=== PATIENT | female | born 1995 | race Caucasian/White ===

== ENCOUNTER → 2016-06-14 | Outpatient (CLI) | payer BC, OTHER ==
--- NOTE | 2016-06-14 16:39 | DI ---
XR FOOT COMPLETE MIN 3VW,06/14/2016 1:57 PM: Clinical History: Left foot pain. Previous Exam: None at this facility. Findings: 3 views of the left foot are obtained, and demonstrate anatomic alignment without fractures. The surr ounding soft tissues are unremarkable. Impression: Normal left foot.
== END ==
LOC: MOB RAD 14:20
DX: M79.672 Pain in left foot (principal); W10.9XXA Fall (on) (from) unspecified stairs and steps, initial encounter
CPT/HCPCS: 73630

== ENCOUNTER 2019-01-01 00:55 | Inpatient (IN) ==
[2019-01-01] MEDS ORDERED: LIDOCAINE W/ SODIUM BICARB 0.5 ML SYR SUBD PRN (11:34)
[2019-01-01] MEDS ORDERED: CITRIC ACID/SODIUM CITRATE 30 ML CUP PO PRN (11:34)
[2019-01-01] MEDS ORDERED: Carboprost Inj 250 MCG/ML AMP IM PRN (11:34)
[2019-01-01] MEDS ORDERED: CALCIUM CARBONATE 500 MG (TUMS) CHEWABLE TABLET PO PRN (11:34)
[2019-01-01] MEDS ORDERED: Phenylephrine Inj 50 MCG in Sodium Chloride 0.9% vial 0.5 ML IVP PRN (11:34)
[2019-01-01] MEDS ORDERED: OXYTOCIN 10 UNIT/1 ML IM PRN (11:34)
[2019-01-01] MEDS ORDERED: MISOPROSTOL 200 MCG TABLET RECTAL PRN (11:34)
[2019-01-01] MEDS ORDERED: CefOXitin Inj 2 GM in Sodium Chloride 0.9% 100 ML IV PRN (11:34)
[2019-01-01] MEDS ORDERED: NALOXONE 0.4 MG/1 ML VIAL IVP PRN (11:34)
[2019-01-01] MEDS ORDERED: ONDANSETRON 4 MG/2 ML VIAL IVP PRN (11:34)
[2019-01-01] MEDS ORDERED: Naloxone Inj 0.01 MG in Sodium Chloride 0.9% vial 1 ML IVP PRN (11:34)
[2019-01-01] MEDS ORDERED: METHYLERGONOVINE MALEATE 0.2 MG/1 ML VIAL IM PRN (11:34)
[2019-01-01] MEDS ORDERED: LIDOCAINE HCL 2 % 10 ML JELLY URO-JECT TOPICAL PRN (11:34)
[2019-01-01] MEDS ORDERED: diphenhydrAMINE 50 MG/1 ML VIAL IVP PRN (11:34)
[2019-01-01] MEDS ORDERED: Metoclopramide Inj 10 MG/2 ML VIAL IV PRN (11:34)
[2019-01-01] MEDS ORDERED: TERBUTALINE SULFATE 1 MG/1 ML SDV SUBCUT PRN (11:34)
[2019-01-01] MEDS ORDERED: FAMOTIDINE 20 MG/2 ML VIAL IVP PRN ×2 (11:34)
[2019-01-01] MEDS ORDERED: BUTORPHANOL TARTRATE 2 MG/1 ML VIAL IVP PRN (11:34)
[2019-01-01] MEDS ORDERED: Nalbuphine Inj 20 MG/ML Ampule IVP PRN (11:34)
[2019-01-01] MEDS ORDERED: fentaNYL Inj 100 MCG/2 ML VIAL IV PRN (11:34)
[2019-01-01] MEDS ORDERED: Lidocaine 1% 10 MG/ML - 20 ML VIAL SUBCUT PRN (11:34)
[2019-01-01] MEDS ORDERED: Oxytocin 20 Units + LR 20 UNIT/1,000 ML BAG IV SCH (11:45)
[2019-01-01] MEDS ORDERED: PENICILLIN G POTASSIUM 5,000,000 UNIT SDV IV ONE (12:34)
[2019-01-01] MEDS ORDERED: Sodium Chloride 0.9% 50 ML ONE (12:34)
[2019-01-01] MEDS: Lactated Ringers-OB Dept 1,000 ML PRIMARY IV SCH (12:38)
[2019-01-01 12:39] LABS: Hematocrit [HCT] 37.6 % (37.0-47.0); Hemoglobin [HGB] 13.1 g/dL (12.0-16.0); MEAN CORPUSCULAR HGB CONC 34.8 g/dL (33-37); MEAN CORPUSCULAR VOLUME 87.2 FL (81-99); MEAN PLATELET VOLUME 9.5 FL (7.4-12.2); RED BLOOD COUNT 4.31 10^6/uL (4.20-5.40)
[2019-01-01] MEDS ORDERED: MORPHINE SULFATE 2 MG/1 ML IVP ONE (21:05)
[2019-01-01] MEDS ORDERED: diphenhydrAMINE 25 MG CAPSULE PO ONE (21:06)
[2019-01-02] MEDS: Lactated Ringers-OB Dept 1,000 ML PRIMARY IV SCH ×2 (01:16→07:16)
[2019-01-02 08:42] VITALS: BP 114/76; RESP 16; TEMP 97.7; O2SAT 96
== END 2019-01-02 11:15 | disposition home or self-care (01) | DRG 833 ==
LOC: OBOP 00:55 → OBIP 11:34
PROVIDERS: ADMIT Obstetrics & Gynecology; ATTEND Obstetrics & Gynecology

== ENCOUNTER 2019-01-03 18:31 | Inpatient (IN) ==
[2019-01-03] MEDS ORDERED: MORPHINE SULFATE 2 MG/1 ML IVP ONE (20:19)
[2019-01-03] MEDS ORDERED: Lidocaine 1% 10 MG/ML - 20 ML VIAL SUBCUT PRN (21:23)
[2019-01-03] MEDS ORDERED: Carboprost Inj 250 MCG/ML AMP IM PRN (21:23)
[2019-01-03] MEDS ORDERED: CefOXitin Inj 2 GM in Sodium Chloride 0.9% 100 ML IV PRN (21:23)
[2019-01-03] MEDS ORDERED: Metoclopramide Inj 10 MG/2 ML VIAL IV PRN (21:23)
[2019-01-03] MEDS ORDERED: LIDOCAINE HCL 2 % 10 ML JELLY URO-JECT TOPICAL PRN (21:23)
[2019-01-03] MEDS ORDERED: MISOPROSTOL 200 MCG TABLET RECTAL PRN (21:23)
[2019-01-03] MEDS ORDERED: LIDOCAINE W/ SODIUM BICARB 0.5 ML SYR SUBD PRN ×2 (21:23→21:36)
[2019-01-03] MEDS ORDERED: OXYTOCIN 10 UNIT/1 ML IM PRN (21:23)
[2019-01-03] MEDS ORDERED: NALOXONE 0.4 MG/1 ML VIAL IVP PRN (21:23)
[2019-01-03] MEDS ORDERED: BUTORPHANOL TARTRATE 2 MG/1 ML VIAL IVP PRN (21:23)
[2019-01-03] MEDS ORDERED: fentaNYL Inj 100 MCG/2 ML VIAL IVP PRN (21:23)
[2019-01-03] MEDS ORDERED: Naloxone Inj 0.01 MG in Sodium Chloride 0.9% vial 1 ML IVP PRN (21:23)
[2019-01-03] MEDS ORDERED: FAMOTIDINE 20 MG/2 ML VIAL IVP PRN ×2 (21:23)
[2019-01-03] MEDS ORDERED: Phenylephrine Inj 50 MCG in Sodium Chloride 0.9% vial 0.5 ML IVP PRN (21:23)
[2019-01-03] MEDS ORDERED: Nalbuphine Inj 20 MG/ML Ampule IVP PRN (21:23)
[2019-01-03] MEDS ORDERED: CALCIUM CARBONATE 500 MG (TUMS) CHEWABLE TABLET PO PRN ×2 (21:23→21:36)
[2019-01-03] MEDS ORDERED: METHYLERGONOVINE MALEATE 0.2 MG/1 ML VIAL IM PRN (21:23)
[2019-01-03] MEDS ORDERED: diphenhydrAMINE 50 MG/1 ML VIAL IVP PRN (21:23)
[2019-01-03] MEDS ORDERED: ONDANSETRON 4 MG/2 ML VIAL IVP PRN ×2 (21:23→21:36)
[2019-01-03] MEDS ORDERED: CITRIC ACID/SODIUM CITRATE 30 ML CUP PO PRN (21:23)
[2019-01-03] MEDS ORDERED: TERBUTALINE SULFATE 1 MG/1 ML SDV SUBCUT PRN (21:23)
[2019-01-03] MEDS ORDERED: Oxytocin 20 Units + LR 20 UNIT/1,000 ML BAG IV SCH (21:30)
[2019-01-03] MEDS ORDERED: Lactated Ringers-OB Dept 1,000 ML PRIMARY IV SCH (21:30)
[2019-01-03] MEDS ORDERED: Ondansetron ODT Tab 4 MG TAB PO PRN (21:36)
[2019-01-03] MEDS ORDERED: Zolpidem Tab 5 MG TAB PO PRN (21:48)
[2019-01-04] MEDS: MORPHINE SULFATE 2 MG/1 ML IVP PRN ×2 (08:30→14:29)
[2019-01-04] MEDS ORDERED: Prenatal Multivitamin Tab 1 TAB TAB PO SCH (09:00)
[2019-01-04] MEDS ORDERED: CALCIUM CARBONATE 500 MG (TUMS) CHEWABLE TABLET PO PRN ×2 (14:34→19:02)
[2019-01-04] MEDS ORDERED: Nalbuphine Inj 20 MG/ML Ampule IVP PRN ×2 (14:34→19:02)
[2019-01-04] MEDS ORDERED: BUTORPHANOL TARTRATE 2 MG/1 ML VIAL IVP PRN (14:34)
[2019-01-04] MEDS ORDERED: CITRIC ACID/SODIUM CITRATE 30 ML CUP PO PRN (14:34)
[2019-01-04] MEDS ORDERED: FAMOTIDINE 20 MG/2 ML VIAL IVP PRN ×2 (14:34)
[2019-01-04] MEDS ORDERED: Carboprost Inj 250 MCG/ML AMP IM PRN (14:34)
[2019-01-04] MEDS ORDERED: Phenylephrine Inj 50 MCG in Sodium Chloride 0.9% vial 0.5 ML IVP PRN (14:34)
[2019-01-04] MEDS ORDERED: Naloxone Inj 0.01 MG in Sodium Chloride 0.9% vial 1 ML IVP PRN (14:34)
[2019-01-04] MEDS ORDERED: TERBUTALINE SULFATE 1 MG/1 ML SDV SUBCUT PRN (14:34)
[2019-01-04] MEDS ORDERED: ONDANSETRON 4 MG/2 ML VIAL IVP PRN ×2 (14:34→19:02)
[2019-01-04] MEDS ORDERED: CefOXitin Inj 2 GM in Sodium Chloride 0.9% 100 ML IV PRN (14:34)
[2019-01-04] MEDS ORDERED: fentaNYL Inj 100 MCG/2 ML VIAL IVP PRN (14:34)
[2019-01-04] MEDS ORDERED: Metoclopramide Inj 10 MG/2 ML VIAL IV PRN (14:34)
[2019-01-04] MEDS ORDERED: LIDOCAINE W/ SODIUM BICARB 0.5 ML SYR SUBD PRN (14:34)
[2019-01-04] MEDS ORDERED: LIDOCAINE HCL 2 % 10 ML JELLY URO-JECT TOPICAL PRN ×2 (14:34→19:02)
[2019-01-04] MEDS ORDERED: NALOXONE 0.4 MG/1 ML VIAL IVP PRN (14:34)
[2019-01-04] MEDS ORDERED: METHYLERGONOVINE MALEATE 0.2 MG/1 ML VIAL IM PRN (14:34)
[2019-01-04] MEDS ORDERED: OXYTOCIN 10 UNIT/1 ML IM PRN (14:34)
[2019-01-04] MEDS ORDERED: Lidocaine 1% 10 MG/ML - 20 ML VIAL SUBCUT PRN (14:34)
[2019-01-04] MEDS ORDERED: diphenhydrAMINE 50 MG/1 ML VIAL IVP PRN ×2 (14:34→19:02)
[2019-01-04] MEDS ORDERED: MISOPROSTOL 200 MCG TABLET RECTAL PRN (14:34)
[2019-01-04] MEDS ORDERED: Sodium Chloride 0.9% 100 ML IV ONE (14:40)
[2019-01-04] MEDS ORDERED: PENICILLIN G POTASSIUM 5,000,000 UNIT SDV IV ONE (14:40)
[2019-01-04] MEDS ORDERED: Lactated Ringers 0 ML PRIMARY IV ONE (14:40)
[2019-01-04] MEDS ORDERED: Oxytocin 20 Units + LR 20 UNIT/1,000 ML BAG IV SCH ×2 (14:45→19:02)
[2019-01-04] MEDS ORDERED: Lactated Ringers-OB Dept 1,000 ML PRIMARY IV SCH (14:45)
[2019-01-04 15:37] LABS: Hematocrit [HCT] 37.6 % (37.0-47.0); Hemoglobin [HGB] 13.1 g/dL (12.0-16.0); MEAN CORPUSCULAR VOLUME 86.6 FL (81-99); RED BLOOD COUNT 4.34 10^6/uL (4.20-5.40)
[2019-01-04 15:38] LABS: MEAN CORPUSCULAR HGB CONC 34.8 g/dL (33-37); MEAN PLATELET VOLUME 9.4 FL (7.4-12.2)
[2019-01-04] MEDS ORDERED: Lidocaine/Epi Inj 1.5% 5 ML AMPUL EPIDURAL ONE (15:47)
[2019-01-04] MEDS ORDERED: Fent/Bupiv 2mcg/0.0625% Epid 250 ML ONE (15:47)
[2019-01-04] MEDS ORDERED: fentaNYL 2 MCG/BUPIVACAINE 0.0625%/NS 0.9% 250 ML BAG EPIDURAL SCH (16:30)
[2019-01-04] MEDS ORDERED: BENZOCAINE/MENTHOL SPRAY 56 GM BOTTLE TOPICAL PRN (19:02)
[2019-01-04] MEDS ORDERED: Lidocaine 1% 10 MG/ML - 20 ML VIAL INTRADERM PRN (19:02)
[2019-01-04] MEDS ORDERED: DIPH,PERTUSS,TET(ADACEL) VAC/PF 0.5 ML (Tdap) IM ONE (19:02)
[2019-01-04] MEDS ORDERED: LANOLIN HPA 40 GM TUBE TOPICAL PRN (19:02)
[2019-01-04] MEDS ORDERED: diphenhydrAMINE 25 MG CAPSULE PO PRN (19:02)
[2019-01-04] MEDS ORDERED: Ondansetron ODT Tab 4 MG TAB PO PRN (19:02)
[2019-01-04] MEDS ORDERED: GLYCERIN/WITCH HAZEL 1 BOX TOPICAL PRN (19:02)
[2019-01-04] MEDS: HYDROcodone-APAP 5 MG -325 MG TABLET PO PRN (22:17)
[2019-01-05] MEDS: IBUPROFEN 800 MG TABLET PO PRN ×2 (05:14→13:39)
[2019-01-05] MEDS: HYDROcodone-APAP 5 MG -325 MG TABLET PO PRN (05:14)
[2019-01-05 07:11] LABS: Hematocrit [HCT] 38.2 % (37.0-47.0); Hemoglobin [HGB] 13.3 g/dL (12.0-16.0); MEAN CORPUSCULAR HGB CONC 34.8 g/dL (33-37); MEAN PLATELET VOLUME 9.3 FL (7.4-12.2); RED BLOOD COUNT 4.39 10^6/uL (4.20-5.40)
[2019-01-05] MEDS: Prenatal Multivitamin Tab 1 TAB TAB PO SCH (10:01)
[2019-01-05] MEDS: DOCUSATE 100 MG CAPSULE PO SCH ×2 (10:01→20:25)
[2019-01-05] MEDS: ACETAMINOPHEN 325 MG TABLET PO PRN ×2 (10:06→20:25)
[2019-01-06] MEDS: IBUPROFEN 800 MG TABLET PO PRN ×2 (01:58→09:32)
[2019-01-06 09:27] VITALS: BP 110/80; RESP 18; TEMP 97.7; O2SAT 98
[2019-01-06] MEDS: Prenatal Multivitamin Tab 1 TAB TAB PO SCH (09:31)
[2019-01-06] MEDS: DOCUSATE 100 MG CAPSULE PO SCH (09:32)
== END 2019-01-06 11:15 | disposition home or self-care (01) | DRG 807 ==
LOC: OBOP 18:31 → INTOOBSV 21:33 → OBIP 21:33
PROVIDERS: ADMIT Obstetrics & Gynecology; ATTEND Obstetrics & Gynecology